=== PATIENT | male | born 1955 | race Caucasian/White ===

== ENCOUNTER → 2021-10-18 | Outpatient (CLI) | payer MEDICARE, OTHER ==
[~2021-10-18] MED LIST: ALLERGY RELIEF10 M1 PO; ASPIRIN EC81 MG PO; ATORVASTATIN CA20 MG PO; AUGMENTIN 500-500 MG PO; HYDROCHLOROTHIA25 MG PO; LISINOPRIL40 MG PO; VERAPAMIL ER240 MG PO
== END ==
LOC: CT 13:52
DX: K35.33 Acute appendicitis with perforation, localized peritonitis, and gangrene, with abscess (principal); R91.1 Solitary pulmonary nodule
CPT/HCPCS: Q9963; Q9967

== ENCOUNTER → 2021-11-04 | Day surgery (SDC) | payer MEDICARE, OTHER ==
[~2021-11-04] MED LIST changes: +INVOKANA100 MG PO
== END | disposition home or self-care (01) ==
LOC: OR 06:39
DX: Z12.11 Encounter for screening for malignant neoplasm of colon (principal); K35.32 Acute appendicitis with perforation, localized peritonitis, and gangrene, without abscess; E11.9 Type 2 diabetes mellitus without complications; I10 Essential (primary) hypertension; Z88.8 Allergy status to other drugs, medicaments and biological substances; Z79.82 Long term (current) use of aspirin; Z79.84 Long term (current) use of oral hypoglycemic drugs; Z79.899 Other long term (current) drug therapy
CPT/HCPCS: 82962; J2704

== ENCOUNTER → 2021-11-25 | Outpatient (CLI) | payer MEDICARE, OTHER ==
[~2021-11-25] MED LIST changes: +JANUVIA100 MG PO
[2021-11-25 11:15] LABS: HEMOGLOBIN 15.7 gm/dl (14.0-17.5); RED BLOOD COUNT 5.32 M/UL (4.20-5.50); WHITE BLOOD COUNT 8.3 K/UL (4.5-11.0)
[2021-11-25 11:40] LABS: BUN/CREATININE RATIO 20 (0-10)
== END ==
LOC: OPSV2 10:00
PROVIDERS: Anesthesiology
DX: Z01.818 Encounter for other preprocedural examination (principal)
CPT/HCPCS: 36415; 80048; 85025; 93005

== ENCOUNTER → 2021-12-04 | Day surgery (SDC) | payer MEDICARE, OTHER ==
[~2021-12-04] MED LIST changes: +COLACE100 MG PO; +HYDROCODON-ACE1 EAC2 PO; +ZYRTEC10 MG PO
== END | disposition home or self-care (01) ==
LOC: OR 05:22
DX: K35.30 Acute appendicitis with localized peritonitis, without perforation or gangrene (principal); K66.0 Peritoneal adhesions (postprocedural) (postinfection); Z88.8 Allergy status to other drugs, medicaments and biological substances
CPT/HCPCS: 82962; J0690; J1100; J1885; J2001; J2250; J2405; J2704; J2710; J3010